=== PATIENT | male | born 1955 | race Caucasian/White ===

== ENCOUNTER 2018-07-30 08:34 | Day surgery (SDC) | payer OTHER ==
[~2018-07-30] VITALS: Ht 157.5 cm; Wt 89.8 kg
[2018-07-30] MEDS ORDERED: BUPIVACAINE-MPF 0.25% 30 ML VIAL INJ ONE (10:10)
[2018-07-30] MEDS ORDERED: DESFLURANE 240 ML BTL INH ONE (12:21)
[2018-07-30] MEDS ORDERED: PROPOFOL 200 MG/20 ML VIAL IV ONE (12:21)
[2018-07-30] MEDS ORDERED: fentaNYL 0.05 MG/ML VIAL ONE (12:31)
[2018-07-30] MEDS ORDERED: MIDAZOLAM 2 MG/2 ML VIAL ONE (12:31)
[2018-07-30] MEDS ORDERED: HYDROmorphone 1 MG/ML AMP IVP PRN ×2 (12:45→13:20)
[2018-07-30] MEDS ORDERED: ONDANSETRON 4 MG/2 ML VIAL IVP PRN (12:45)
[2018-07-30] MEDS ORDERED: HYDROcodone/APAP 5/325 MG 1 TAB TAB PO PRN (13:20)
[2018-07-30] MEDS ORDERED: MORPHINE SULFATE 4 MG/ML SYR IV PRN (13:20)
[2018-07-30] MEDS ORDERED: ONDANSETRON 4 MG/2 ML VIAL IV PRN (13:20)
== END 2018-07-30 14:40 | disposition home or self-care (01) ==
LOC: MMU 08:34 → MDS 08:34
PROVIDERS: ATTEND Surgery
DX: K60.3 Anal fistula (principal); I10 Essential (primary) hypertension; E66.9 Obesity, unspecified; Z68.36 Body mass index [BMI] 36.0-36.9, adult; Z79.899 Other long term (current) drug therapy; Z98.890 Other specified postprocedural states; Z87.891 Personal history of nicotine dependence
CPT/HCPCS: 46288; 71045; J0690; J2250; J2704; J3010; J3490; J7060; J7120